=== PATIENT | female | born 1945 | race Two or more races ===

== ENCOUNTER 2018-02-05 05:50 | Day surgery (SDC) | payer OTHER ==
[~2018-02-05 05:50] MED LIST: ANASTROZOLE PO; LANSOPRAZOLE30 MG PO; LEVOXYL50 MCG PO; LISINOPRIL10 MG PO; ZOCOR PO; [UNRECOGNIZED DRUG - OTHER] PO
[2018-02-05] MEDS ORDERED: RECTICARE30 GM TOP (08:43)
[2018-02-05] MEDS ORDERED: ULTRACET PO (08:43)
== END 2018-02-05 14:55 | disposition home or self-care (01) ==
LOC: CIR.AMB 05:50
DX: C44.510 Basal cell carcinoma of anal skin (principal); A63.0 Anogenital (venereal) warts